=== PATIENT | male | born 1985 | race Caucasian/White ===

== ENCOUNTER 2017-04-11 22:06 | Emergency (ER) | payer SELFPAY ==
[2017-04-11 22:22] VITALS: TEMP 97.7
--- NOTE | 2017-04-11 22:24 | EDPHY ---
H & P Stated Complaint: etoh from [facility] Source: Patient Exam Limitations: No limitations, Intoxication - Personal History Current Tetanus/Diphtheria Vaccine: Unsure Current Tetanus Diphtheria and Acellular Pertussis (TDAP): Yes - Medical/Surgical History Hx Asthma: No Hx Chronic Respiratory Disease: No Hx Diabetes: No Hx Cardiac Disease: No Hx Renal Disease: No Hx Cirrhosis: No Hx Alcoholism: Yes Hx HIV/AIDS: No Hx Splenectomy or Spleen Trauma: No - Social History Smoking Status: Current every day smoker Time Seen by Provider: 04/11/17 22:10 HPI/ROS: HPI: This is a 32-year-old male who presents with Chief Complaint: Alcohol intoxication Location: Body Quality: Alcohol intoxication Duration: Today Signs and Symptoms: No suicidal ideation, no homicidal ideation, no hallucinations Timing: Acute on chronic Severity: Moderate to severe Context: Patient presents via police from the [facility]. He drank a qt of vodka today and went to the [facility] for detox. While he was laying in his caught, the [facility] had a fire drill and patient was unable to ambulate without assistance safely. Residents had to help carry him outside. Patient is alert and talkative upon arrival to the emergency room. Modifying Factors: None Comment: ROS: see HPI Constitutional: No fever, no chills, no weight loss Eyes: No blurred vision Respiratory: No shortness of breath, no cough Cardiovascular: No chest pain Gastrointestinal: No nausea, no vomiting, no diarrhea Genitourinary: No dysuria Extremities: No myalgias Neurologic: No weakness, no numbness Skin: No rashes Hematologic: No bruising, no bleeding MEDICAL/SURGICAL/SOCIAL HISTORY: Medical history: Generally healthy. Does not take any regular medications. Surgical history: Denies Social history: CONSTITUTIONAL: Smells heavily of alcohol, adult white male, awake and alert, no obvious distress HEENT: Atraumatic and normocephalic, PERRL, EOMI. Tympanic membranes clear. Oropharynx clear, no exudate and moist pink mucosa. Airway patent. No lymphadenopathy. No meningismus. Cardiovascular: Normal S1/S2, regular rate, regular rhythm, without murmur rub or gallop. PULMONARY/CHEST: Symmetrical and nontender. Clear to auscultation bilaterally. Good air movement. No accessory muscle usage. ABDOMEN: Soft, nondistended, nontender, no rebound, no guarding, no peritoneal signs, no masses or organomegaly. No CVAT. EXTREMITIES: 2/2 pulses, strength 5/5, no deformities, no clubbing, no cyanosis or edema. NEUROLOGICAL: no focal neuro deficits. GCS 15. Slurred speech. SKIN: Warm and dry, no erythema. no rash. Good capillary refill. (Suzette Caro) Constitutional: Initial Vital Signs Temperature (C) 36.5 C 04/11/17 22:16 Heart Rate 83 04/11/17 22:16 Respiratory Rate 18 04/11/17 22:16 Blood Pressure 130/76 H 04/11/17 22:16 O2 Sat (%) 93 04/11/17 22:16 O2 Delivery Mode Room Air Allergies/Adverse Reactions: No Known Allergies Allergy (Unverified 04/11/17 22:16) Home Medications: Medication Instructions Recorded NK [No Known Home Meds] 04/11/17 Medical Decision Making ED Course/Re-evaluation: Patient is sleeping immediately upon arrival. Easily aroused with verbal stimuli and maintaining patent airway. Vital signs stable Refused Breathalyzer upon arrival. No signs of delirium/seizure activity Will monitor and once more sober and able to ambulate without ataxia; discharge back to the [facility] 0100: End of Shift. Signed out to Dr. Hutson. No clinical intervention required during my shift. (Suzette Caro) 2:15 a.m. the patient is increasingly sober. He is ambulating without difficulty. We will transfer back to the [facility]. (Adam Hutson) Differential Diagnosis: Differential includes hypoglycemia, infectious process, electrolyte abnormality , head injury and intoxicants. (Suzette Caro) Departure - Departure Disposition: Home, Routine, Self-Care Clinical Impression: Alcohol intoxication Qualifiers: Complication of substance-induced condition: uncomplicated Qualified Code(s): F10.920 - Alcohol use, unspecified with intoxication, uncomplicated Condition: Good Instructions: Alcohol Intoxication (ED) Referrals: [facility] Detox 24 Hours [Outside] - As per Instructions
--- NOTE | 2017-04-11 22:24 | EDPHY ---
H & P Stated Complaint: etoh from [facility] Source: Patient Exam Limitations: No limitations, Intoxication - Personal History Current Tetanus/Diphtheria Vaccine: Unsure Current Tetanus Diphtheria and Acellular Pertussis (TDAP): Yes - Medical/Surgical History Hx Asthma: No Hx Chronic Respiratory Disease: No Hx Diabetes: No Hx Cardiac Disease: No Hx Renal Disease: No Hx Cirrhosis: No Hx Alcoholism: Yes Hx HIV/AIDS: No Hx Splenectomy or Spleen Trauma: No - Social History Smoking Status: Current every day smoker Time Seen by Provider: 04/11/17 22:10 HPI/ROS: HPI: This is a 32-year-old male who presents with Chief Complaint: Alcohol intoxication Location: Body Quality: Alcohol intoxication Duration: Today Signs and Symptoms: No suicidal ideation, no homicidal ideation, no hallucinations Timing: Acute on chronic Severity: Moderate to severe Context: Patient presents via police from the [facility]. He drank a qt of vodka today and went to the [facility] for detox. While he was laying in his caught, the [facility] had a fire drill and patient was unable to ambulate without assistance safely. Residents had to help carry him outside. Patient is alert and talkative upon arrival to the emergency room. Modifying Factors: None Comment: ROS: see HPI Constitutional: No fever, no chills, no weight loss Eyes: No blurred vision Respiratory: No shortness of breath, no cough Cardiovascular: No chest pain Gastrointestinal: No nausea, no vomiting, no diarrhea Genitourinary: No dysuria Extremities: No myalgias Neurologic: No weakness, no numbness Skin: No rashes Hematologic: No bruising, no bleeding MEDICAL/SURGICAL/SOCIAL HISTORY: Medical history: Generally healthy. Does not take any regular medications. Surgical history: Denies Social history: CONSTITUTIONAL: Smells heavily of alcohol, adult white male, awake and alert, no obvious distress HEENT: Atraumatic and normocephalic, PERRL, EOMI. Tympanic membranes clear. Oropharynx clear, no exudate and moist pink mucosa. Airway patent. No lymphadenopathy. No meningismus. Cardiovascular: Normal S1/S2, regular rate, regular rhythm, without murmur rub or gallop. PULMONARY/CHEST: Symmetrical and nontender. Clear to auscultation bilaterally. Good air movement. No accessory muscle usage. ABDOMEN: Soft, nondistended, nontender, no rebound, no guarding, no peritoneal signs, no masses or organomegaly. No CVAT. EXTREMITIES: 2/2 pulses, strength 5/5, no deformities, no clubbing, no cyanosis or edema. NEUROLOGICAL: no focal neuro deficits. GCS 15. Slurred speech. SKIN: Warm and dry, no erythema. no rash. Good capillary refill. (Suzette Caro) Constitutional: Initial Vital Signs Temperature (C) 36.5 C 04/11/17 22:16 Heart Rate 83 04/11/17 22:16 Respiratory Rate 18 04/11/17 22:16 Blood Pressure 130/76 H 04/11/17 22:16 O2 Sat (%) 93 04/11/17 22:16 O2 Delivery Mode Room Air Allergies/Adverse Reactions: No Known Allergies Allergy (Unverified 04/11/17 22:16) Home Medications: Medication Instructions Recorded NK [No Known Home Meds] 04/11/17 Medical Decision Making ED Course/Re-evaluation: Patient is sleeping immediately upon arrival. Easily aroused with verbal stimuli and maintaining patent airway. Vital signs stable Refused Breathalyzer upon arrival. No signs of delirium/seizure activity Will monitor and once more sober and able to ambulate without ataxia; discharge back to the [facility] 0100: End of Shift. Signed out to Dr. Hutson. No clinical intervention required during my shift. (Suzette Caro) 2:15 a.m. the patient is increasingly sober. He is ambulating without difficulty. We will transfer back to the alcohol recovery [facility]. (Adam Hutson) Differential Diagnosis: Differential includes hypoglycemia, infectious process, electrolyte abnormality , head injury and intoxicants. (Suzette Caro) Departure - Departure Disposition: Home, Routine, Self-Care Clinical Impression: Alcohol intoxication Qualifiers: Complication of substance-induced condition: uncomplicated Qualified Code(s): F10.920 - Alcohol use, unspecified with intoxication, uncomplicated Condition: Good Instructions: Alcohol Intoxication (ED) Referrals: [facility] Detox 24 Hours [Outside] - As per Instructions
--- NOTE | 2017-04-11 22:24 | EDPHY ---
H & P Stated Complaint: etoh from [facility] Source: Patient Exam Limitations: No limitations, Intoxication - Personal History Current Tetanus/Diphtheria Vaccine: Unsure Current Tetanus Diphtheria and Acellular Pertussis (TDAP): Yes - Medical/Surgical History Hx Asthma: No Hx Chronic Respiratory Disease: No Hx Diabetes: No Hx Cardiac Disease: No Hx Renal Disease: No Hx Cirrhosis: No Hx Alcoholism: Yes Hx HIV/AIDS: No Hx Splenectomy or Spleen Trauma: No - Social History Smoking Status: Current every day smoker Time Seen by Provider: 04/11/17 22:10 HPI/ROS: HPI: This is a 32-year-old male who presents with Chief Complaint: Alcohol intoxication Location: Body Quality: Alcohol intoxication Duration: Today Signs and Symptoms: No suicidal ideation, no homicidal ideation, no hallucinations Timing: Acute on chronic Severity: Moderate to severe Context: Patient presents via police from the [facility]. He drank a qt of vodka today and went to the [facility] for detox. While he was laying in his caught, the [facility] had a fire drill and patient was unable to ambulate without assistance safely. Residents had to help carry him outside. Patient is alert and talkative upon arrival to the emergency room. Modifying Factors: None Comment: ROS: see HPI Constitutional: No fever, no chills, no weight loss Eyes: No blurred vision Respiratory: No shortness of breath, no cough Cardiovascular: No chest pain Gastrointestinal: No nausea, no vomiting, no diarrhea Genitourinary: No dysuria Extremities: No myalgias Neurologic: No weakness, no numbness Skin: No rashes Hematologic: No bruising, no bleeding MEDICAL/SURGICAL/SOCIAL HISTORY: Medical history: Generally healthy. Does not take any regular medications. Surgical history: Denies Social history: CONSTITUTIONAL: Smells heavily of alcohol, adult white male, awake and alert, no obvious distress HEENT: Atraumatic and normocephalic, PERRL, EOMI. Tympanic membranes clear. Oropharynx clear, no exudate and moist pink mucosa. Airway patent. No lymphadenopathy. No meningismus. Cardiovascular: Normal S1/S2, regular rate, regular rhythm, without murmur rub or gallop. PULMONARY/CHEST: Symmetrical and nontender. Clear to auscultation bilaterally. Good air movement. No accessory muscle usage. ABDOMEN: Soft, nondistended, nontender, no rebound, no guarding, no peritoneal signs, no masses or organomegaly. No CVAT. EXTREMITIES: 2/2 pulses, strength 5/5, no deformities, no clubbing, no cyanosis or edema. NEUROLOGICAL: no focal neuro deficits. GCS 15. Slurred speech. SKIN: Warm and dry, no erythema. no rash. Good capillary refill. (Suzette Caro) Constitutional: Initial Vital Signs Temperature (C) 36.5 C 04/11/17 22:16 Heart Rate 83 04/11/17 22:16 Respiratory Rate 18 04/11/17 22:16 Blood Pressure 130/76 H 04/11/17 22:16 O2 Sat (%) 93 04/11/17 22:16 O2 Delivery Mode Room Air Allergies/Adverse Reactions: No Known Allergies Allergy (Unverified 04/11/17 22:16) Home Medications: Medication Instructions Recorded NK [No Known Home Meds] 04/11/17 Medical Decision Making ED Course/Re-evaluation: Patient is sleeping immediately upon arrival. Easily aroused with verbal stimuli and maintaining patent airway. Vital signs stable Refused Breathalyzer upon arrival. No signs of delirium/seizure activity Will monitor and once more sober and able to ambulate without ataxia; discharge back to the [facility] 0100: End of Shift. Signed out to Dr. Hutson. No clinical intervention required during my shift. (Suzette Caro) 2:15 a.m. the patient is increasingly sober. He is ambulating without difficulty. We will transfer back to the alcohol recovery [facility]. (Adam Hutson) Differential Diagnosis: Differential includes hypoglycemia, infectious process, electrolyte abnormality , head injury and intoxicants. (Suzette Caro) Departure - Departure Disposition: Home, Routine, Self-Care Clinical Impression: Alcohol intoxication Qualifiers: Complication of substance-induced condition: uncomplicated Qualified Code(s): F10.920 - Alcohol use, unspecified with intoxication, uncomplicated Condition: Good Instructions: Alcohol Intoxication (ED) Referrals: [facility] Detox 24 Hours [Outside] - As per Instructions
[2017-04-12 02:30] VITALS: BP 124/71; PULSE 104; RESP 18; O2SAT 93
== END 2017-04-12 02:36 | disposition home or self-care (01) ==
DX: F10.920 Alcohol use, unspecified with intoxication, uncomplicated (principal); F17.200 Nicotine dependence, unspecified, uncomplicated